=== PATIENT | female | born 1990 | race Caucasian/White ===

== ENCOUNTER 2016-09-10 08:00 | Inpatient (IN) | payer OTHER ==
[~2016-09-10] VITALS: Ht 154.9 cm; Wt 105.4 kg
[~2016-09-10 08:00] MED LIST: PREN1TAB49 PO
[2016-09-10 08:20] VITALS: Ht 154.9 cm; Wt 105.4 kg
[2016-09-10] MEDS ORDERED: IBUPROFEN 600 MG TAB PO PRN (08:30)
[2016-09-10] MEDS ORDERED: METHYLERGONOVINE 0.2 MG INJ IM PRN (08:30)
[2016-09-10] MEDS ORDERED: BUTORPHANOL 2 MG INJ IV PRN (08:30)
[2016-09-10] MEDS ORDERED: LACTATED RINGER'S 1,000 ML IV PRN (08:30)
[2016-09-10] MEDS ORDERED: OXYTOCIN 30 UNITS/LR 500 ML IV PRN (08:30)
[2016-09-10] MEDS ORDERED: MISOPROSTOL 200 MCG TAB PR PRN (08:30)
[2016-09-10] MEDS ORDERED: MINERAL OIL LIGHT 10 ML VIAL TOP PRN (08:30)
[2016-09-10] MEDS ORDERED: LIDOCAINE 1% (MPF) 30 ML INJ INJ PRN (08:30)
[2016-09-10] MEDS ORDERED: OXYTOCIN 30 UNITS/LR 500 ML IV SCH ×2 (08:30)
[2016-09-10] MEDS ORDERED: CARBOPROST 250 MCG INJ IM PRN (08:30)
[2016-09-10] MEDS ORDERED: AMPICILLIN 2 GM/NS (PMX) 100 ML IV ONE (08:30)
[2016-09-10] MEDS: LACTATED RINGER'S 1,000 ML IV SCH ×3 (08:50→20:59)
[2016-09-10 09:06] LABS: ADD SCAN DIFF NO
[2016-09-10 09:13] LABS: BASOPHILS % 0.2 % (0.0-2.0); EOSINOPHILS # 0.1 10^3/ul (0.0-0.5); LYMPHOCYTES # 1.2 10^3/ul (0.8-2.9); LYMPHOCYTES % 11.4 % (15.0-51.0); MEAN CORPUSCULAR HEMOGLOBIN 32.7 pg (29.0-33.0); MEAN CORPUSCULAR HGB CONC 34.3 g/dl (32.0-37.0); MEAN CORPUSCULAR VOLUME 95.4 fl (82.0-101.0); MEAN PLATELET VOLUME 10.3 fl (7.4-10.4); MONOCYTE # 0.5 10^3/ul (0.3-0.9); MONOCYTES % 4.9 % (0.0-11.0); NEUTROPHIL # 8.8 10^3/ul (1.6-7.5); NEUTROPHILS % 81.9 % (39.0-77.0); PLATELET COUNT 232 10^3/UL (140-415); RED BLOOD COUNT 3.67 10^6/ul (4.20-5.40); WHITE BLOOD COUNT 10.8 10^3/ul (4.8-10.8)
[2016-09-10 09:29] LABS: INR 0.9; PROTIME 12.1 Sec (12.2-14.2); PT RATIO 0.9
[2016-09-10 09:30] LABS: PARTIAL THROMBOPLASTIN TIME 28.4 Sec (25.0-35.0)
[2016-09-10 09:37] VITALS: BP 127/79; PULSE 105; RESP 18
[2016-09-10] MEDS ORDERED: FER325 PO (10:39)
[2016-09-10] MEDS ORDERED: CALC600T11 PO (10:49)
[2016-09-10] MEDS ORDERED: KEFLEX (10:51)
[2016-09-10] MEDS ORDERED: DINOPROSTONE 10 MG VAG SUPP VAG ONE (11:00)
[2016-09-10] MEDS: AMPICILLIN 1 GM/NS (PMX) 50 ML IV SCH ×4 (12:33→20:59)
[2016-09-10] MEDS ORDERED: FENTAnyl 2MCG/ML-ROPIV 0.2% 100 ML ONE (20:17)
--- NOTE | 2016-09-10 20:32 | HP ---
Date/Time of Note Date/Time of Note DATE: 09/10/16 TIME: 20:27 OB - History Hx of Present Free Text/Dictation admitted for elective induction Last Menstrual Period: Dec 03, 2016 Estimated Due Date: September 09, 2016 : 3 Para: 2 Care: Good Care Ultrasounds: Normal mid trimester US Obstetrical Complications: None Medical Complications: None Past Family/Social History * Past Medical, Surgical, Family and Obstetric Histories reviewed from chart. Blood Type: B+ Rubella: immune RPR/VDRL: Negative GBS Status: Negative HBsAG: Negative OB Admission Exam Vital Signs Vital Signs Vital Signs Date Time Temp Pulse Resp B/P Pulse Ox O2 Delivery O2 Flow Rate FiO2 09/10/16 09:37 99.0 105 18 127/79 Room Air Physical Exam HEENT: WNL Heart: Rhythm Normal Lungs: Clear, Equal Abdomen: WNL Extremities: Normal Reflexes: Normal Cervical Dilatation: 1cm Effacement: 0% Station: -3 Membranes: Intact Heart Rate: 140's Accelerations: Accelerations Present Decelerations: No Decelerations Varibility: Marked Contractions on Admission: None Last 72 hours Lab Results CBC & BMP 09/10/16 08:45 OB Assessment/Plan Other Assessment: term gestation for induction of the labor Induction Method: per Misoprostol Protocol YOSVANY DEE MD September 10, 2016 20:32
[2016-09-10] MEDS ORDERED: NALOXONE (0.4 MG/ML) INJ IV PRN (23:00)
[2016-09-10] MEDS ORDERED: DIPHENHYDRAMINE 50 MG INJ IV PRN (23:00)
[2016-09-10] MEDS ORDERED: ONDANSETRON 4 MG INJ IV PRN (23:00)
[2016-09-10] MEDS ORDERED: FENTAnyl 2MCG/ML-ROPIV 0.2% 100 ML BAG EPI SCH (23:00)
[2016-09-11] MEDS: AMPICILLIN 1 GM/NS (PMX) 50 ML IV SCH (00:30)
--- NOTE | 2016-09-11 02:21 | LDN ---
Date/Time of Note Date/Time of Note DATE: 09/11/16 TIME: 02:18 Delivery Summary I was called by RN to attend delivery due to precipitous delivery. Patient had been managed during her labor by DR. Ramirez, Placenta Delivered: Spontaneously Meconium: Thick Episiotomy: No Perineal laceration: 0 Laceration repair: suprauterthral lacerations, without extension to the urethra noted. Urinary in and Out cathater placed, urine clear. no extenstion to urethra. First degree supraurethral laceration repaired using 3-0 chromic. excellent Hemostasis Anesthesia type: Epidural Estimated blood loss: 400 Sponge & Needle done & correct: Yes All needle counts correct: Yes Any foreign bodies felt in the: No Problems: Infant Delivery Information Sex Infant Sex: female Apgars 1 Minute: 8 5 Minute: 9 Suctioning Nose & mouth suctioned at chiquita: Yes Delee suction performed: Yes Umbilical Cord Umbilical cord with: 3 Vessels Cord presentations: nuchal cord Cord Blood was obtained: Yes Mother & Baby Disposition Disposition Mom & Baby to Maternity; Good: Yes Mom transferred to: Other (psot ) Baby to NICU: No LASHAWN SPARROW MD Sep 11, 2016 02:21
[2016-09-11] MEDS: LACTATED RINGER'S 1,000 ML IV* SCH ×3 (02:26→17:51)
[2016-09-11] MEDS ORDERED: CARBOPROST 250 MCG INJ IM PRN (02:30)
[2016-09-11] MEDS ORDERED: ZOLPIDEM 5 MG TAB PO PRN (02:30)
[2016-09-11] MEDS ORDERED: ONDANSETRON 4 MG INJ IV PRN (02:30)
[2016-09-11] MEDS ORDERED: METHYLERGONOVINE 0.2 MG INJ IM PRN (02:30)
[2016-09-11] MEDS: IBUPROFEN 600 MG TAB PO SCH ×4 (02:30→17:51)
[2016-09-11] MEDS ORDERED: OXYTOCIN 30 UNITS/LR 500 ML IV PRN (02:30)
[2016-09-11] MEDS ORDERED: DIPHENHYDRAMINE 25 MG CAP PO PRN (02:30)
[2016-09-11] MEDS ORDERED: MISOPROSTOL 200 MCG TAB PR PRN (02:30)
[2016-09-11] MEDS ORDERED: ACETAMINOPHEN 325 MG TAB PO PRN (02:30)
[2016-09-11] MEDS: SENNA/DOCUSATE NA (8.6MG/50MG) TAB PO SCH ×3 (02:30→20:51)
[2016-09-11 04:10] VITALS: BP 121/66; PULSE 96; RESP 18
[2016-09-11] MEDS: CEPHALEXIN 500 MG CAP PO SCH ×5 (05:17→20:51)
[2016-09-11] MEDS: WITCH HAZEL/GLYCERIN PAD PR PRN (05:20)
[2016-09-11 07:02] LABS: HEMATOCRIT 32.4 % (37.0-47.0)
[2016-09-11 09:15] VITALS: BP 132/79; PULSE 114; RESP 20
[2016-09-11] MEDS: ACETAMINOPHEN/CODEINE #3 TAB PO PRN ×2 (09:51→20:52)
[2016-09-11] MEDS: FERROUS SULFATE (EC) 325 MG TAB PO SCH ×3 (09:51→20:51)
[2016-09-11 12:30] VITALS: BP 124/89; PULSE 89; RESP 18
[2016-09-11 15:50] VITALS: BP 120/83; PULSE 87; RESP 18
[2016-09-11 20:00] VITALS: BP 126/86; PULSE 100; RESP 20
[2016-09-12] MEDS: CEPHALEXIN 500 MG CAP PO SCH ×5 (00:32→21:10)
[2016-09-12] MEDS: IBUPROFEN 600 MG TAB PO SCH ×4 (00:33→17:30)
[2016-09-12] MEDS: LACTATED RINGER'S 1,000 ML IV* SCH ×3 (02:20→18:26)
[2016-09-12 04:15] VITALS: BP 120/71; PULSE 84; RESP 20
[2016-09-12 04:31] VITALS: BP 118/80; PULSE 94; RESP 20
[2016-09-12] MEDS: ACETAMINOPHEN/CODEINE #3 TAB PO PRN (08:02)
[2016-09-12 08:15] VITALS: BP 137/74; PULSE 76; RESP 19
[2016-09-12] MEDS: SENNA/DOCUSATE NA (8.6MG/50MG) TAB PO SCH ×2 (09:12→21:10)
[2016-09-12] MEDS: FERROUS SULFATE (EC) 325 MG TAB PO SCH ×3 (09:12→21:10)
--- NOTE | 2016-09-12 10:42 | OPPN ---
Date/Time of Note Date/Time of Note DATE: 09/12/16 TIME: 10:42 Post-Anesthesia Notes Post-Anesthesia Note Last documented vital signs Vital Signs Date Time Temp Pulse Resp B/P Pulse Ox O2 Delivery O2 Flow Rate FiO2 09/12/16 08:15 98.0 76 19 137/74 Room Air Activity: WNL Respiratory function: WNL Cardiovascular function: WNL Mental status: Baseline Pain reasonably controlled: Yes Hydration appropriate: Yes Nausea/Vomiting absent: Yes JANNA PERRY Sep 12, 2016 10:42
--- NOTE | 2016-09-12 15:10 | DS ---
Date/Time of Note Date/Time of Note home next day or today DATE: 09/12/16 TIME: 15:09 Obstetrical Discharge Record Final Diagnosis Final Diagnosis: Term delivered Other Final Diagnosis S/P vaginal delivery Vaginal Delivery Obstetrical Delivery: Spontaneous, Laceration, Repaired Complications Induction: Yes Condition on Discharge Physical Assessment Last Vitals: see nurses notes Voiding: Yes Bowel Movement: Yes Breast: Soft, non-tender, Filling Fundus: Firm Abdomen and Incision: soft bs + Episiotomy: NA Calf Tenderness: No Patient Condition: Good YOSVANY DEE MD Sep 12, 2016 15:10
--- NOTE | 2016-09-12 15:11 | PD.PPDC ---
[employer] Discharge Instruction Provider Information Physician Information 26 y/o female had vaginal delivery Diagnosis Final Diagnosis: S/P vagianl delivery Condition Patient Condition: Good Diet Diet: Resume Regular Diet Activity/Restrictions Activity: Normal Activity May Shower Restrictions: Nothing in the Vagina Return to Work or School: Oct 27, 2016 Follow-up Follow-up with Physician: 4, Week/Weeks (in clinic ) Return to clinic for OB Instructions: Breast Tenderness Depression YOSVANY DEE MD Sep 12, 2016 15:11
[2016-09-12] MEDS ORDERED: IBUP-1542 PO (15:12)
[2016-09-12 16:48] VITALS: BP 129/86; PULSE 85; RESP 20
[2016-09-12 19:30] VITALS: BP 150/98; PULSE 87; RESP 20
[2016-09-12 20:30] VITALS: BP 139/84; PULSE 91; RESP 18
[2016-09-13] MEDS: CEPHALEXIN 500 MG CAP PO SCH ×4 (00:52→09:59)
[2016-09-13] MEDS: IBUPROFEN 600 MG TAB PO SCH ×3 (00:52→12:14)
[2016-09-13] MEDS: LACTATED RINGER'S 1,000 ML IV* SCH ×2 (02:26→10:26)
[2016-09-13 04:20] VITALS: BP 114/74; PULSE 68; RESP 18
[2016-09-13 08:20] VITALS: BP 131/89; PULSE 93; RESP 19
[2016-09-13] MEDS ORDERED: VARICELLA VACCINE LIVE/PF 1,350 UNIT/0.5 ML ML SC* ONE (09:00)
[2016-09-13] MEDS ORDERED: DIPHTH/TET/ACEL PERTUSS (ADULT) 0.5 ML VIAL IM* ONE (09:00)
[2016-09-13] MEDS ORDERED: MEASLES,MUMPS,RUBELLA VACCINE INJ SC* ONE (09:00)
[2016-09-13] MEDS: WITCH HAZEL/GLYCERIN PAD PR PRN (09:59)
[2016-09-13] MEDS: FERROUS SULFATE (EC) 325 MG TAB PO SCH (10:00)
[2016-09-13] MEDS: SENNA/DOCUSATE NA (8.6MG/50MG) TAB PO SCH (10:01)
== END 2016-09-13 17:36 | disposition home or self-care (01) | DRG 775 ==
LOC: L-D 08:12 → PP1 09-11 04:11
PROVIDERS: ADMIT Obstetrics & Gynecology; ATTEND Obstetrics & Gynecology
PROC: 10E0XZZ Delivery of Products of Conception, External Approach (ICD-10-PCS; principal; 2016-09-11)
PROC: 0TQDXZZ Repair Urethra, External Approach (ICD-10-PCS; 2016-09-11)
DX: O69.81X0 Labor and delivery complicated by cord around neck, without compression, not applicable or unspecified (principal); O71.5 Other obstetric injury to pelvic organs; O48.0 Post-term pregnancy; Z3A.40 40 weeks gestation of pregnancy; Z37.0 Single live birth
CPT/HCPCS: 62319; 85014; 85018; 85025; 85610; 85730; 86592; 86900; 86901; 88307; 90715; 90716; 99464; J0290; J0595; J2590; J3010; J7120